=== PATIENT | male | born 1995 | race Asian ===

== ENCOUNTER 2019-02-02 21:32 | Emergency (ER) | payer SELFPAY ==
[~2019-02-02] VITALS: Ht 175.3 cm; Wt 56.7 kg
--- NOTE | 2019-02-02 21:44 | NUR ---
ED Nurse Note: PT WALKED IN TO ED ACCOMPANIED BY HIS FATHER FOR C/O N/V/D, SORE THROAT, COUGH, FEVER X 3 DAYS. CURRENTLY PT TEMP IS 100.0 ORALLY. PT STATED HE HAS BEEN TAKING NYQUIL AND DAYQUIL.
[2019-02-02 21:45] VITALS: BP 120/60
--- NOTE | 2019-02-02 21:49 | Emergency Room Report ---
History of Present Illness General Chief Complaint: Flu Like Symptoms Source: Patient Present Illness HPI Is a 23-year-old male with no past medical history. He presents with chief complaint of flulike illness. Onset for the last 4 days. He has subjective fever. Sore throat. Has nausea vomiting diarrhea. Unable to keep anything down. [place] weak and tired. Denies any vomiting blood. No bloody diarrhea. Coughing is nonproductive made. Worse with eating and swallowing. Allergies: Coded Allergies: No Known Allergies (Unverified , 02/02/19) Patient History Past Medical History: see triage record, old chart reviewed Past Surgical History: none Pertinent Family History: none Social History: Denies: smoking Immunizations: other Reviewed Nursing Documentation: PMH: Agreed; PSxH: Agreed Nursing Documentation-PMH Past Medical History: No Stated History Hx Cardiac Problems: No Hx Hypertension: No Hx Pacemaker: No Hx Asthma: No Hx COPD: No Hx Diabetes: No Hx Cancer: No Hx Gastrointestinal Problems: No Hx Dialysis: No History Of Psychiatric Problem: No Hx Neurological Problems: No Hx Cerebrovascular Accident: No Hx Seizures: No Review of Systems Constitutional: Reports: fever, weakness Eye: Denies: eye pain, blurred vision ENT: Reports: throat pain; Denies: ear pain, nose congestion, throat swelling Respiratory: Denies: cough, shortness of breath Cardiovascular: Denies: chest pain, palpitations Gastrointestinal: Reports: abdominal pain, diarrhea, nausea, vomiting Musculoskeletal: Denies: back pain, joint pain Skin: Denies: rash Neurological: Denies: headache, numbness Endocrine: Denies: increased thirst, increased urine Hematologic/Lymphatic: Denies: easy bruising All Other Systems: negative except mentioned in HPI Physical Exam Vital Signs Date Time Temp Pulse Resp B/P (MAP) Pulse Ox O2 Delivery O2 Flow Rate FiO2 02/02/19 21:40 100.0 108 20 120/60 (80) 98 Room Air Vitals with low-grade fever Sp02 EP Interpretation: reviewed, normal General Appearance: well appearing, no apparent distress, alert Head: normocephalic, atraumatic Eyes: bilateral eye PERRL, bilateral eye EOMI ENT: hearing grossly normal, normal pharynx Neck: full range of motion, supple, no meningismus Respiratory: chest non-tender, lungs clear, normal breath sounds Cardiovascular #1: regular rate, rhythm, no murmur Gastrointestinal: normal bowel sounds, non tender, no mass, no organomegaly, no bruit, non-distended Musculoskeletal: back normal, normal range of motion, gait/station normal Psychiatric: mood/affect normal Medical Decision Making Diagnostic Impression: Primary Impression: Influenza B ER Course Patient presents with influenza. Looks well. No evidence of dehydration. No evidence of sepsis, meningitis or other serious bacterial infection. Will discharge home. Last Vital Signs Date Time Temp Pulse Resp B/P (MAP) Pulse Ox O2 Delivery O2 Flow Rate FiO2 02/02/19 21:45 105 18 Room Air 02/02/19 21:45 100.0 120/60 98 Status: improved Disposition: HOME, SELF-CARE Condition: Stable Scripts Ondansetron* (ZOFRAN*) 4 Mg Tablet 4 MG ORAL Q6H PRN for Nausea & Vomiting, #10 TAB Prov: Mingo Schultz MD 02/02/19 Ibuprofen* (MOTRIN*) 600 Mg Tablet 600 MG ORAL THREE TIMES A DAY, #30 TAB 0 Refills Prov: Mingo Schultz MD 02/02/19 Additional Instructions: Rest. Increase fluids. Follow-up with your doctor in 7 days for recheck if not better. Return if symptoms worsen. Mingo Schultz MD Feb 02, 2019 21:49
[2019-02-02] MEDS ORDERED: Ketorolac 30mg Inj IV ONE (22:00)
--- NOTE | 2019-02-02 22:00 | NUR ---
ED Nurse Note: BLOOD SAMPLE SENT DOWN TO LAB
[2019-02-02 22:09] LABS: HEMATOCRIT 44.1 % (42.0-52.0); LYMPHOCYTES % (AUTO) 14.1 % (20.0-45.0); MEAN CORPUSCULAR VOLUME 75 FL (80-99); MONOCYTES % (AUTO) 9.3 % (1.0-10.0); NEUTROPHILS % (AUTO) 75.5 % (45.0-75.0); PLATELET COUNT 170 K/UL (150-450); RED BLOOD COUNT 5.91 M/UL (4.70-6.10); RED CELL DISTRIBUTION WIDTH 10.5 % (11.6-14.8); WHITE BLOOD COUNT 11.7 K/UL (4.8-10.8)
[2019-02-02 22:20] LABS: ANION GAP 7 mmol/L (5-15); BLOOD UREA NITROGEN 17 mg/dL (7-18); CALCIUM 9.3 MG/DL (8.5-10.1); CARBON DIOXIDE 29 MMOL/L (21-32); CHLORIDE 96 MMOL/L (98-107); CREATININE 1.2 MG/DL (0.55-1.30); POTASSIUM 3.8 MMOL/L (3.5-5.1); SODIUM 132 MMOL/L (136-145)
[2019-02-02 22:25] LABS: ALANINE AMINOTRANSFERASE 41 U/L (12-78); ALBUMIN 4.1 G/DL (3.4-5.0); ALBUMIN/GLOBULIN RATIO 0.8 (1.0-2.7); ALKALINE PHOSPHATASE 54 U/L (46-116); ASPARTATE AMINO TRANSFERASE 49 U/L (15-37); BILIRUBIN,TOTAL 0.7 MG/DL (0.2-1.0)
[2019-02-02] MEDS ORDERED: IBUPROFEN600 MG ORAL (22:37)
[2019-02-02] MEDS ORDERED: ZOFRAN4 M3 ORAL (22:37)
[2019-02-02 22:46] VITALS: BP 116/64
--- NOTE | 2019-02-02 22:46 | NUR ---
ER DISCHARGE NOTE: Patient is cleared to be discharged per ERMD, pt is aox4, on room air, with stable vital signs. pt was given dc and prescription instructions, pt was able to verbalize understanding, pt id band and iv site removed without complications. pt is able to ambulate with steady gait. pt took all belongings.
== END 2019-02-02 22:46 | disposition home or self-care (01) ==
LOC: EMR 21:50
DX: J11.1 Influenza due to unidentified influenza virus with other respiratory manifestations (principal)
CPT/HCPCS: 36415; 80053; 85025; 86710; 96361; 96374; 96375; 99284; J1885; J2405